=== PATIENT | female | born 1970 | race Caucasian/White ===

== ENCOUNTER 2020-12-31 08:44 | Inpatient (IN) ==
--- NOTE | 2020-12-16 12:37 | PAT Medication Instructions ---
Medication Instructions Date of Service December 16, 2020 Home Medications acetaminophen [Tylenol Extra Strength] 500 mg PO Q4H PRN Continue as directed acetaminophen [Tylenol Extra Strength] 500 mg PO Q4H PRN (if needed, may be taken up to four hours before surgery) Other Notes If you have any questions please call us at [phone] or [phone] or [phone] or [phone]
--- NOTE | 2020-12-17 12:37 | Anesthesiology Consultation ---
Date of Service December 17, 2020 Assessment & Plan (1) Encounter for pre-operative examination: COVID Status: As of 12/17 assessment, patient denies travel to endemic area, known exposure/sick contacts, or symptoms of COVID19. Patient instructed that they and their household members must follow strict social distancing guidelines, wear a mask in public and avoid travel/events/gatherings for 14 days prior to surgery. Preoperative COVID19 testing to be completed prior to surgery per surgeon's arrangements (12/27). Patient made aware to self-isolate as much as possible between COVID testing and surgery. Pt is fully vaccinated for COVID. Patient with recent blepharoplasty and forehead lift. Tito at scalp line and episcopalian to be removed on 12/19/20, but patient reports that her plastic surgeon advised she have extra padding around her forehead when prone intraoperatively. HCG AM DOS Chart Review Chart Review: Acceptable Risk for Surgery and Patient seen in Pre Admission Testing Teaching & Discussion Instructed NPO after midnight before surgery, except medications with 15 cc of water. Medication instructions provided according to the PAT guidelines. History Surgery Operation Date: 12/31/20 07:45 Proposed Procedures p L4-S1 Decompression Fusion, Spinal Cord Monitoring - Javid Brady, Height/Weight Height: 5 ft 4 in Weight: 92.5 kg Allergies Allergy/AdvReac Type Severity Reaction Status Date / Time No Known Allergies Allergy Verified 12/11/20 11:51 Medications Home Medications Medication Instructions Recorded Confirmed Last Taken acetaminophen [Tylenol Extra 500 mg PO Q4H PRN 12/11/20 12/11/20 Unknown Strength] Past Medical History Medical History Chronic back pain Spondylisthesis Exercise / Class Metabolic Activity II 4-5 Yardwork/Stairs/Walk up hill Past Family History Family History Mother Family history of diabetes mellitus Grandmother (Paternal) Family history of diabetes mellitus Past Surgical History Surgical History Elective surgery CRYOSURGERY CERVIX History of arthroscopy SHOULDER LEFT History of back surgery CERVICAL FUSION History of bunionectomy of both great toes History of endometrial ablation History of esophagogastroduodenoscopy (EGD) History of eyelid surgery UPPER History of tonsillectomy Nausea and vomiting after administration of anesthetic agent NAUSEA ONLY Past Anesthesia History No Hx of Anesthesia Complications and No Family Hx of Anesthesia Complications History of PONV No Hx of Motion Sickness and History of PONV (nausea after blepharoplasty) Social History Smoking Status: Former smoker Do You Dip or Chew Tobacco: No Smoking End Date: QUIT 15 YRS AGO Hx Alcohol Use: No Hx Substance Use: No Review of Systems Pt denies any recent chest pain, shortness of breath, palpitations, cough, fever, URI, or uncontrolled acid reflux. +mild allergy symptoms, slightly itchy throat sometimes Physical Exam Vital Signs BP: 111/76 P: 83bpm SPO2: 97% RA T: 98.4 F R: 16 Eyes Ecchymosis under B/L eyes 2/2 recent blepharoplasty ENMT Mouth: + dental restorations (one crown lower R molar); no chipped teeth and no loose teeth Thyromental Distance: < 3.5 Finger Breadths (3) Mallampati Class: I Neck + limited neck extension (2/2 h/o fusion) Respiratory normal respiratory effort, lungs clear to auscultation Cardiovascular RRR, no murmur, no edema Testing Laboratory Results 12/17/20 12:53 12/17/20 12:53 PT 10.3 Seconds (9.0-12.0) 12/17/20 12:53 INR 1.0 (0.9-1.1) 12/17/20 12:53 APTT 26.6 Seconds (21.0-31.0) 12/17/20 12:53 Urine Color Yellow 12/17/20 12:53 Urine Appearance Clear (Clear) 12/17/20 12:53 Urine pH 6.5 (4.5-7.5) 12/17/20 12:53 Ur Specific [place] <= 1.005 (1.000-1.030) 12/17/20 12:53 Urine Protein Negative (Negative) 12/17/20 12:53 Urine Glucose (UA) Negative (Negative) 12/17/20 12:53 Urine Ketones Negative (Negative) 12/17/20 12:53 Urine Nitrite Negative (Negative) 12/17/20 12:53 Ur Leukocyte Esterase Negative (Negative) 12/17/20 12:53 Urine RBC 5-10 /hpf (0-4) H 12/17/20 12:53 Urine WBC 0-5 /hpf (0-5) 12/17/20 12:53 Ur Epithelial Cells 5-10 /lpf (0-5) H 12/17/20 12:53 Blood Type B Positive 12/17/20 12:53 Antibody Screen NEGATIVE 12/17/20 12:53 Electrocardiogram Date: 12/17/20 Findings: + NSR @ (70bpm) Chest X-Ray Date: 12/17/20 Findings: + NAD
--- NOTE | 2020-12-17 13:15 | XRay Report ---
TWO VIEW CHEST CLINICAL HISTORY: Preoperative examination. Reported smoking history. FINDINGS: PA and lateral chest radiographs are obtained. No prior studies are available for compariso n at the time of dictation. The cardiomediastinal silhouette is unremarkable. The lungs and pleural spaces are clear. There is no pneumothorax. The bony thorax appears intact. Fusion hardware is noted in the lower cervical spine. Surgical clips are seen in the left lower neck. IMPRESSION: No active disease in the chest. ACT 112: Negative or not required by law. Electronically signed by: Lorenzo Godfrey M.D. 12/17/2020 1:13 PM
[2020-12-17 14:19] LABS: Basophils # (auto) 0.02 K/uL (0-0.2); Basophils % (auto) 0.4 %; Eosinophils # (auto) 0.07 K/uL (0-0.5); Eosinophils % (auto) 1.5 %; Hematocrit (blood only) 38.6 % (37-47); Hemoglobin 13.2 g/dL (12.0-16.0); Immature Granulocytes # (auto) 0.01 K/uL (0.00-0.02); Immature Granulocytes % (auto) 0.2 %; Lymphocytes # (auto) 1.48 K/uL (1.2-3.4); Lymphocytes % (auto) 31.7 %; Mean Corpuscular Hemoglobin 30.3 pg (25-34); Mean Corpuscular Hgb Conc 34.2 g/dL (32-36); Mean Corpuscular Volume 88.7 fL (80-100); Mean Platelet Volume 9.1 fL (7.4-10.4); Monocytes # (auto) 0.48 K/uL (0.11-0.59); Monocytes % (auto) 10.3 %; Neutrophils # (auto) 2.61 K/uL (1.4-6.5); Neutrophils % (auto) 55.9 %; Platelet Count 313 K/uL (130-400); RDW Coefficient of Variation 12.4 % (11.5-14.5); RDW Standard Deviation 40.3 fL (36.4-46.3); Red Blood Count 4.35 M/uL (4.2-5.4); White Blood Count 4.67 K/uL (4.8-10.8)
[2020-12-17 14:29] LABS: Calcium 8.7 mg/dl (8.5-10.1); Creatinine Clr Calc Pharmacy 107.2 ml/min; Est GFR (African American) 117.9 ml/min; Est GFR (Non-African American) 101.7 ml/min; Potassium 4.5 mmol/L (3.5-5.1)
[2020-12-17 14:31] LABS: Appearance Urine Clear (Clear); Bilirubin Urine Negative (Negative); Blood Urine Trace-intact (Negative); Color Urine Yellow; Glucose Urine UA Negative (Negative); Ketones Urine Negative (Negative); Leukocyte Esterase Urine Negative (Negative); Nitrite Urine Negative (Negative); Protein Urine Negative (Negative); Specific Gravity Urine <= 1.005 (1.000-1.030); Urobilinogen Urine Negative (Negative); pH Urine 6.5 (4.5-7.5)
[2020-12-17 14:33] LABS: Partial Thromboplastin Time 26.6 Seconds (21.0-31.0); Prothrombin Time 10.3 Seconds (9.0-12.0)
[2020-12-17 14:59] LABS: Bacteria Urine Negative (Negative); WBC Urine 0-5 /hpf (0-5)
--- NOTE | 2020-12-17 17:10 | Electrocardiogram Report ---
Test Reason : Blood Pressure : / mmHG Vent. Rate : 070 BPM Atrial Rate : 070 BPM P-R Int : 146 ms QRS Dur : 084 ms QT Int : 400 ms P-R-T Axes : 063 070 063 degrees QTc Int : 432 ms Normal sinus rhythm Normal ECG No previous ECGs available Confirmed by Colten Wright ([id number]) on 12/17/2020 5:09:56 PM Referred By: Javid Brady Confirmed By:Andrey Wright
[~2020-12-31 08:44] MED LIST: ACETAMINOPHEN 500 MG TAB PO SCH; CeleBREX 200 MG CAP PO SCH; GABAPENTIN 900 MG DOSE PO SCH; LR 15ML/HR IV SCH; ceFAZolin 2000MG 2,000 MG/15 ML SYR IV SCH
--- NOTE | 2020-12-31 10:12 | History & Physical Bridge Note ---
Date of Service December 31, 2020 History & Physical Bridge Note I have examined the patient, reviewed the History & Physical and in the interval since the performance of the History & Physical I have noted the following changes of clinical significance: no changes noted
--- NOTE | 2020-12-31 10:12 | History & Physical Report ---
Date of Service December 31, 2020 Assessment & Plan (1) Neurogenic claudication due to lumbar spinal stenosis: Admission and Anticipated Discharge Date Admission Date: L4-S1 decompression fusion History of Present Illness Chief Complaint: Back and leg pain Primary Care Provider: Judith Méndez MD This is a 50-year-old female presents with chronic persistent back and leg pain. Failing course of nonoperative care she is here for surgical invention. Allergies Allergy/AdvReac Type Severity Reaction Status Date / Time No Known Allergies Allergy Verified 12/31/20 09:10 Home Medications Medication Instructions Recorded Confirmed Type acetaminophen [Tylenol Extra 500 mg PO Q4H PRN 12/11/20 12/31/20 History Strength] Past Med/Surg History Medical History Chronic back pain Spondylisthesis Surgical History Elective surgery CRYOSURGERY CERVIX History of arthroscopy SHOULDER LEFT History of back surgery CERVICAL FUSION History of bunionectomy of both great toes History of endometrial ablation History of esophagogastroduodenoscopy (EGD) History of eyelid surgery UPPER History of tonsillectomy Nausea and vomiting after administration of anesthetic agent NAUSEA ONLY Family History Mother Family history of diabetes mellitus Grandmother (Paternal) Family history of diabetes mellitus Social History Smoking Status: Former smoker Smoking End Date: QUIT 15 YRS AGO; Second Hand Exposure: No; Do You Dip or Chew Tobacco: No; Hx Alcohol Use: No Hx Substance Use: No Preferred Language: Citizen Of [place] Communication Ability: Effective Child Care Required: No Beliefs That Will Affect Care: None Current Living Situation: Spouse Other Information That Helps Us Care for You: No Feels Safe at Home: Yes Safety Concerns: Feels Safe At This Time Assistive Devices: Glasses Physical Exam Physical Exam: Patient is alert and oriented Heart regular in rhythm Lungs clear to auscultation Results & Data ([facility]) Vital Signs (Past 12 Hours) Vital Signs Temp Pulse Resp BP Pulse Ox 12/31/20 09:19 36.9 C 89 18 130/71 97
[2020-12-31] MEDS ORDERED: BUPIVACAINE/EPINEPHRINE 0.5% MPF 1:200,000 30 ML VIAL ONE (10:27)
[2020-12-31] MEDS ORDERED: FLUMAZENIL 0.1 MG/1 ML 10 ML VIAL IV PRN (11:01)
[2020-12-31] MEDS ORDERED: HYDROmorphone INJ 1 MG/ML SYRINGE IV PRN (11:01)
[2020-12-31] MEDS ORDERED: ePHEDrine sulfate 50 MG/ML AMP IV PRN (11:01)
[2020-12-31] MEDS ORDERED: NALOXONE HCL 0.4 MG/1 ML VIAL/CARP IV PRN ×2 (11:01→14:38)
[2020-12-31] MEDS ORDERED: ONDANSETRON INJ 2 MG/ML 2 ML VIAL IV PRN ×2 (11:01→14:38)
[2020-12-31] MEDS ORDERED: ATROPINE SULFATE 0.1 MG/ML 10ML SYR IV PRN (11:01)
[2020-12-31] MEDS ORDERED: PROMETHAZINE HCL 12.5 MG in SODIUM CHLORIDE 0.9% 50 ML IV PRN ×2 (11:01→14:38)
[2020-12-31] MEDS ORDERED: LABETALOL HCL IV 5 MG/ML 20ML IV PRN (11:01)
[2020-12-31] MEDS ORDERED: ONDANSETRON INJ 2 MG/ML 2 ML VIAL ONE (12:15)
[2020-12-31] MEDS ORDERED: MIDAZOLAM HCL 1 MG/ML 2ML VIAL ONE (12:15)
[2020-12-31] MEDS ORDERED: ROCURONIUM BROMIDE 10 MG/ML 5 ML VIAL IV ONE (12:15)
[2020-12-31] MEDS ORDERED: GLYCOPYRROLATE 0.2 MG/ML VIAL ONE (12:15)
[2020-12-31] MEDS ORDERED: fentaNYL citrate 100 MCG/2 ML VIAL ONE ×2 (12:15→12:32)
[2020-12-31] MEDS ORDERED: PROPOFOL IV EMULSION 10 MG/ML 20 ML VIAL IV ONE (12:15)
[2020-12-31] MEDS ORDERED: NEOSTIGMINE METHYLSULFATE 1 MG/ML 10ML VIAL ONE (12:15)
[2020-12-31] MEDS ORDERED: SUCCINYLCHOLINE CHLORIDE 20 MG/ML 10 ML VIAL IV ONE (12:15)
[2020-12-31] MEDS ORDERED: LIDOCAINE 2% 2 ML VIAL/AMP(20MG/ML) INFIL ONE (12:15)
[2020-12-31] MEDS ORDERED: DEXAMETHASONE SOD INJ 4 MG/ML VIAL ONE (12:15)
[2020-12-31] MEDS ORDERED: FLOSEAL HEMOSTATIC MATRIX 10ML TOP ONE (12:32)
--- NOTE | 2020-12-31 12:33 | Operative Report ---
Post Operative Report Pre & Post Diagnosis Operation Date: 12/31/20 12:35 Pre-Op Diagnosis: Neurogenic claudication due to lumbar spinal stenosis Post-Op Diagnosis: Neurogenic claudication due to lumbar spinal stenosis I identified the patient and participated in the time-out.: Yes Procedure Operation Date: 12/31/20 12:35 Actual Procedures #1 lumbar decompression with bilateral medial facetectomies and foraminotomies L3-4, L4-5 L5-S1. #2 posterior spinal fusion L4-5 L5-S1. #3 placement posterior instrumentation L4-5 L5-S1. #4 interbody fusion L4-5 L5-S1. #5 placement peek cage 11 x 22 mm at L4-5 and 10 x 22 mm at L5-S1. #6 placement locally harvested morselized autograft in the posterior gutters. #7 placement of I factor and vitoss the interbody space and posterior gutters.. Surgeon Javid Brady, DO Marble Cleaner Elvia Bunn Estimated Blood Loss 150 Findings See Below Patient is in excess of 35. Patient's body habitus did contribute to significant technical difficulty requiring her deepest retractors and longus instruments in order to perform her procedure. This at least 50% increase to the operative time. Specimens None Indications This is a 50-year-old female who presents with above-mentioned diagnosis after failing course of nonoperative Description of Procedure Patient was met with identified informed consent obtained. Patient was then taken to the operative suite underwent intubation placed in the prone position the Chris table atop the Jaspreet frame. All bony prominences well-padded eyes inspected to ensure no external pressure placed upon the. This point the lumbar spine was prepped and draped in normal sterile fashion. Sharp dissection with the assistance of Bovie cautery was performed down to and exposing the lamina and transverse processes of L for L5 and sacral ala bilaterally. Obvious bilateral pars defect noted. A complete laminectomy of L5 L4 and partial laminectomy L3 was performed including bilateral medial facetectomies and foraminotomies addressing severe spinal stenosis with pedicle screws were then placed in L4-L5 and S1 levels bilaterally with assistance of fluoroscopy the purposes fabi placed. By way the transforaminal portion of the left pleat discectomy of L5-S1 was performed endplates curetted to subcortical any bone and a 10 x 22 mm peek cage filled with I factor tapped in position. Then proceeded to L for L5 and again by way of a transforaminal approach and left pleat di scectomy performed endplates curetted to subcortically bone and a 11 x 22 mm peek cage filled with I factor tapped in position. The rods were then compressed locked into final position bilaterally. The transverse processes of L4-L5 and sacral ala burred to subcortically bone. I factor combined with Vitoss and locally harvested morselized autograft placed in the posterior gutters. 15 round DALIA drain inserted. The incision was then closed with 1 Vicryl in the fascia 2-0 Vicryl subcutaneously and 4 Monocryl for final skin closure. Steri-Strip sterile dressings placed. Patient will continue PACU stable condition. Please note spinal cord monitoring was utilized at the procedure no changes noted. Lastly Elvia Bunn was present at the entire surgery involved the patient positioning complex portions of the surgery and final skin closure. I attest to the content of the Intraoperative Record and any orders documented therein. Any exceptions are noted below.
[2020-12-31] MEDS: fentaNYL citrate 100 MCG/2 ML VIAL IV PRN ×4 (13:20→13:43)
--- NOTE | 2020-12-31 13:43 | Anesthesiology Progress Note ---
Date of Service December 31, 2020 Anesthesia Post Procedure Vital Signs Vital Signs: Temp Pulse Pulse Resp BP Pulse Ox 12/31/20 13:35 65 16 112/62 100 12/31/20 13:25 65 16 109/63 100 12/31/20 13:15 36.4 C L 80 16 111/66 100 12/31/20 13:05 67 16 105/54 L 97 12/31/20 12:55 70 16 102/48 L 92 12/31/20 12:47 36.3 C L 90 16 118/65 98 12/31/20 09:19 36.9 C 89 18 130/71 97 Pain Intensity Left Leg: Pain Intensity: 3 Back: Pain Intensity: 5 Transfer of Care Handoff Completed per policy Notes Mental Status: alert / awake / arousable Patient Amnestic to Procedure: Yes Nausea / Vomiting: adequately controlled Pain: adequately controlled Airway Patency, RR, SpO2: stable & adequate BP & HR: stable & adequate Hydration State: stable & adequate Anesthetic Complications: no major complications apparent
--- NOTE | 2020-12-31 14:01 | Fluoroscopy Report ---
FL lumbar spine 2-3V CLINICAL HISTORY: L4-S1 DECOMPRESSION AND FUSION COMPARISON STUDY: None. FLUOROSCOPY TIME: 25 seconds. FLUOROSCOPIC IMAGES: 2 FINDINGS: Fluoroscopy was provided during L4-L5 and L5-S1 discectomies with interbody spacer placemen t. Posterior decompression is noted with bilateral pedicle screw fusion from L4 through S1. The hardw are is intact. IMPRESSION: Fluoroscopy provided for L4-S1 discectomy, posterior decompression and bilateral pedicle screw fusion. ACT 112: Negative or not required by law. Electronically signed by: Mathew Hutchinson M.D. 12/31/2020 1:59 PM
[2020-12-31] MEDS ORDERED: SOD PHOSPHATE/SOD BIPHOSPHATE ENEMA 132 ML BTL PR PRN (14:38)
[2020-12-31] MEDS ORDERED: diphenhydrAMINE Capsule 25 MG CAP PO PRN (14:38)
[2020-12-31] MEDS ORDERED: METOCLOPRAMIDE HCL INJ 5 MG/ML 2 ML VIAL IV PRN (14:38)
[2020-12-31] MEDS ORDERED: ALUMINUM/MAGNESIUM SUSP 30 ML UDC PO PRN (14:38)
[2020-12-31] MEDS ORDERED: FAMOTIDINE 20 MG TAB PO PRN (14:38)
[2020-12-31] MEDS ORDERED: DO NOT ADMINISTER PNEUMOCOCCAL VACCINE PRN (14:38)
[2020-12-31] MEDS ORDERED: MAGNESIUM HYDROXIDE SUSP 30 ML UDC PO PRN (14:38)
[2020-12-31] MEDS ORDERED: ACETAMINOPHEN 1,000 MG/100 ML VIAL IV PRN (14:38)
[2020-12-31] MEDS ORDERED: ONDANSETRON 4 MG OD TAB PO PRN (14:38)
[2020-12-31] MEDS ORDERED: hydrOXYzine HCl 25 MG TAB PO PRN (14:38)
[2020-12-31] MEDS ORDERED: LORazepam 0.5 MG/1 ML VIAL IV PRN (14:38)
[2020-12-31] MEDS ORDERED: DO NOT ADMINISTER FLU VACCINE PRN (14:38)
[2020-12-31] MEDS ORDERED: LORazepam 0.5 MG TAB PO PRN (14:38)
[2020-12-31] MEDS: HYDROmorphone INJ 1 MG/ML SYRINGE IV PRN ×2 (14:58→20:19)
[2020-12-31] MEDS: oxyCODONE HCL IR 5 MG TAB (IMMEDIATE RELEASE) PO PRN ×2 (16:57→23:21)
[2020-12-31] MEDS: LACTATED RINGER'S 1,000 ML IV SCH (17:06)
[2020-12-31] MEDS: ceFAZolin 2000MG 2,000 MG/15 ML SYR IV SCH (18:24)
[2020-12-31] MEDS: DOCUSATE SODIUM/SENNA 50/8.6MG TAB PO SCH (20:18)
[2020-12-31] MEDS: ACETAMINOPHEN 500 MG TAB PO PRN (23:21)
[2021-01-01] MEDS: traMADol HCL 50 MG TABLET PO PRN ×4 (02:33→18:21)
[2021-01-01] MEDS: ceFAZolin 2000MG 2,000 MG/15 ML SYR IV SCH (02:34)
[2021-01-01] MEDS: LACTATED RINGER'S 1,000 ML IV SCH (04:10)
[2021-01-01 06:34] LABS: Basophils # (auto) 0.01 K/uL (0-0.2); Basophils % (auto) 0.1 %; Hematocrit (blood only) 33.4 % (37-47); Hemoglobin 11.6 g/dL (12.0-16.0); Immature Granulocytes # (auto) 0.02 K/uL (0.00-0.02); Immature Granulocytes % (auto) 0.1 %; Lymphocytes # (auto) 1.36 K/uL (1.2-3.4); Lymphocytes % (auto) 9.2 %; Mean Corpuscular Hemoglobin 30.9 pg (25-34); Mean Corpuscular Hgb Conc 34.7 g/dL (32-36); Mean Corpuscular Volume 88.8 fL (80-100); Monocytes # (auto) 0.82 K/uL (0.11-0.59); Monocytes % (auto) 5.6 %; Neutrophils # (auto) 12.54 K/uL (1.4-6.5); Platelet Count 286 K/uL (130-400); RDW Coefficient of Variation 12.4 % (11.5-14.5); Red Blood Count 3.76 M/uL (4.2-5.4); White Blood Count 14.75 K/uL (4.8-10.8)
[2021-01-01] MEDS: oxyCODONE HCL IR 5 MG TAB (IMMEDIATE RELEASE) PO PRN ×4 (06:37→20:10)
[2021-01-01] MEDS: POLYETHYLENE (MIRALAX) 17 GM PACK PO SCH ×3 (06:37→17:26)
[2021-01-01 07:08] LABS: BUN Creatinine Ratio 12.6 (10-20); Calcium 8.7 mg/dl (8.5-10.1); Creatinine Clr Calc Pharmacy 102.8 ml/min; Est GFR (African American) 112.1 ml/min; Est GFR (Non-African American) 96.7 ml/min; Potassium 4.2 mmol/L (3.5-5.1)
--- NOTE | 2021-01-01 12:27 | Orthopedic Progress Note ---
Date of Service January 01, 2021 Assessment & Plan (1) Neurogenic claudication due to lumbar spinal stenosis: Admission and Anticipated Discharge Date Admission Date: December 31, 2020 At this time we will continue physical therapy monitor DALIA operatively discharge home in the next few days. Subjective Patient's back pain is controlled leg symptoms markedly improved. Physical Exam Physical Exam: Patient is good strength testing appears comfortable. Results & Data ([facility]) Vital Signs (Past 12 Hours) Vital Signs Temp Pulse Resp BP Pulse Ox 01/01/21 11:46 36.8 C 75 18 106/68 95 01/01/21 07:34 36.8 C 71 18 89/55 L 97 01/01/21 04:00 36.5 C 74 16 91/55 L 96
[2021-01-01] MEDS: ACETAMINOPHEN 500 MG TAB PO PRN (13:20)
[2021-01-01] MEDS: DOCUSATE SODIUM/SENNA 50/8.6MG TAB PO SCH (20:11)
[2021-01-02] MEDS: POLYETHYLENE (MIRALAX) 17 GM PACK PO SCH ×4 (00:04→17:27)
[2021-01-02] MEDS: HYDROmorphone INJ 0.5 MG/0.5 ML SYR IV PRN ×2 (00:16→05:03)
[2021-01-02] MEDS: oxyCODONE HCL IR 5 MG TAB (IMMEDIATE RELEASE) PO PRN ×4 (07:42→20:28)
--- NOTE | 2021-01-02 08:27 | Orthopedic Progress Note ---
Date of Service January 02, 2021 Assessment & Plan (1) Neurogenic claudication due to lumbar spinal stenosis: Admission and Anticipated Discharge Date Admission Date: December 31, 2020 At this time we will continue physical therapy monitor her DALIA output anticipate discharge home tomorrow. Subjective Back pain controlled leg symptoms improved. Physical Exam Physical Exam: Patient is comfortable. She is good strength testing. Results & Data ([facility]) Vital Signs (Past 12 Hours) Vital Signs Temp Pulse Pulse Resp BP Pulse Ox 01/02/21 07:35 36.7 C 85 16 101/67 99 01/01/21 21:17 36.4 C L 80 18 118/66 95
[2021-01-02] MEDS: dexAMETHasone 8 MG in SYRINGE 0 ML IV SCH (08:36)
[2021-01-02] MEDS: traMADol HCL 50 MG TABLET PO PRN ×4 (10:19→22:35)
[2021-01-02 10:43] LABS: Appearance Urine Cloudy (Clear); Bacteria Urine Automated Negative (Negative); Bilirubin Urine Negative (Negative); Blood Urine Negative (Negative); Color Urine Dark Yellow; Epithelial Cell Urine Auto >30 /lpf (0-5); Glucose Urine UA Negative (Negative); Ketones Urine Trace (Negative); Leukocyte Esterase Urine 1+ (Negative); Nitrite Urine Negative (Negative); Protein Urine Negative (Negative); RBC Urine Automated 0-4 /hpf (0-4); Specific Gravity Urine 1.023 (1.000-1.030); Urobilinogen Urine Negative (Negative)
[2021-01-02] MEDS ORDERED: bisacodyL 10 MG SUPP PR PRN (12:36)
[2021-01-02] MEDS: DOCUSATE SODIUM/SENNA 50/8.6MG TAB PO SCH (20:29)
[2021-01-03] MEDS: oxyCODONE HCL IR 5 MG TAB (IMMEDIATE RELEASE) PO PRN ×3 (00:30→10:32)
[2021-01-03] MEDS: traMADol HCL 50 MG TABLET PO PRN ×2 (03:21→07:27)
[2021-01-03] MEDS: dexAMETHasone 8 MG in SYRINGE 0 ML IV SCH (08:30)
--- NOTE | 2021-01-03 11:20 | Discharge Summary ---
Date of Service January 03, 2021 Admission HPI Per Admitting Provider This is a 50-year-old female presents with chronic persistent back and leg pain. Failing course of nonoperative care she is here for surgical invention. Principal Diagnosis Lumbar spinal stenosis with neurogenic claudication Discharge Data Allergies Allergy/AdvReac Type Severity Reaction Status Date / Time No Known Allergies Allergy Verified 12/31/20 09:10 Procedures Performed Operation Date: 12/31/20 12:35 Actual Procedures p L4-S1 Decompression Fusion with Insertion of Interbodies, Spinal Cord Monitoring(Not Applicable) - Javid Brady DO Ordered Studies 12/31/20 12:35 [place] lumbar spine 2-3V Routine Hospital Course (1) Neurogenic claudication due to lumbar spinal stenosis: Patient went lumbar decompression fusion tolerates well second orthopedic for possibly. Postop day 1 she was up and ambulating progressive postop day 1 2 postop day #3 DALIA drain decreased probably. Pain well controlled. Excellent strength testing. Subsequent discharge home. Discharge orders instructions from the chart for further review. Total Time Total Time Spent Total Time Spent (In Minutes): 20 minutes Discharge Plan Discharge Items Patient Disposition: Home - Self-Care Reason For Visit: Intervertebral Disc Disorders Lumbar Region Discharge Diagnosis: Lumbar spinal stenosis with neurogenic claudication Activity: As commented below Non-emergency contact: Primary Care Provider Call non-emergency contact if: you have any medication questions Follow-up/Referrals: Judith Méndez MD [Primary Care Provider] - Diet: Regular Addtl Attending Provider Instructions: ACTIVITY RECOMMENDATIONS: SELF CARE INSTRUCTIONS AFTER THORACIC/LUMBAR FUSIONS 1. You may walk to your tolerance. It is good exercise for your legs and back. Expect some back and intermittent leg aches and pains. 2. You may perform "counter-top" level activities (make a sandwich, ramses with a project, etc.). 3. No bending or lifting of more than 10 pounds or back twisting of any nature (roll like a log when turning in bed). 4. You may ride in a car for 20-30 minutes at a time. No driving until after your first visit with your doctor. 5. Frequent changes of position and restricting sitting to 30 minutes at a time will help limit the amount of back spasms and stiffness you may experience. 6. You may discontinue the use of ambulatory aids (cane, crutches, etc.) once your strength and confidence allow. 7. You may glycerin operator the shower and let water strike your incision when you arrive home at least once daily. Do not take a tub bath, sit in a hot tub or go into a swimming pool until after your first recheck in the office. SPECIAL CARE INSTRUCTIONS: VERY IMPORTANT TO READ AND REVIEW A. Your surgical incision has been closed with a cosmetic suture under the skin that will dissolve in about 6 weeks. In 14 days, you can use a pair of clean scissors and cut the suture that is left outside of the skin at the ends of your incision. 1. The small skin tapes can be removed 7 days after surgery if they have not fallen off by that point. 2. You may keep the wound open to air as much as possible to promote healing after post-op day number 5 unless told otherwise by your doctor. 3. If you think the wound looks like it is becoming infected (redness or worsening drainage) and/or you are experiencing fever, chill or worsening back pain and muscle spasms, contact the office so that we may evaluate you as soon as possible. B. Complications are uncommon, but please contact us if you have any signs or symptoms of: 1. wound infection (fever higher than 102.5 degrees F, redness, separation of wound, drainage, or increasing pain from the incision) 2. blood clots in legs (pain, swelling, redness and warmth in legs) 3. urinary tract infection (fever higher than 102.5 degrees F, burning upon urination or increased frequency of urination) 4. nerve problems (inability to walk on your toes or heels, numbness, loss of bowel or bladder control) 5. any other symptoms that concern you C. Please call the office at if you have any concerns or questions about your operation or recovery. D. No smoking! Smoking drastically decreases the chance of a solid fusion. E. Do not take any anti-inflammatory medications (Indocin, Advil, Motrin, Aspirin, Naprosyn, etc.) as these may inhibit the chance of a solid fusion. Tylenol is okay to take for pain. MANAGING PAIN AFTER SPINAL SURGERY 1. Narcotic medication is intended for short-term use and will be provided for surgical pain. Surgical pain usually lasts for a period of 4-6 weeks. Narcotic medication includes Percocet, Vicodin, Darvocet, Tylenol #3 or Lortab. 2. Longer-term pain is more appropriately treated with non-narcotic medication such as Tylenol ES. 3. Muscle spasm is not appropriately treated with narcotics. Muscle relaxers such as Soma, Flexeril or Skelaxin can be used along with Tylenol ES. 4. Remember that we all live with some "aches and pains". This is not unusual or uncommon after an injury or as we get older. a. Back pain is expected and may include muscle spasms for 4 to 6 weeks after surgery. The pain should gradually improve. If the pain worsens for no apparent reason, please contact the office. b. Intermittent leg pain may also be experienced and should not be concerned about unless it worsens for no apparent reason. If so, please contact the office. 5. We will provide appropriate medication within the normal guidelines of their prescribed use. We will also be very cautious and aware of potential abuse and extended duration of patients' medication needs. a. Pain medications are for your comfort and to assist with sleep and rest so that the tissue can heal. They are not provided in order to return to normal activity and should not be used through the day. To do so or worsening pain at night can result from ongoing tissue damage and development of tolerance to the prescribed medicine. 6. Please allow 2-3 days to process refills. Prescriptions will not be mailed but must be picked up at the office. FOLLOW UP VISIT: Keep your scheduled follow-up appointment. Any questions, please call the office at . Pending Studies at Discharge: No Stand-Alone Forms: My [facility], Smoking Cessation Medications and MT Order Prescriptions: New tramadol 50 mg tablet 50 mg PO Q6H PRN (Reason: pain, moderate) Qty: 30 RF: 0 oxycodone 5 mg tablet 5 mg PO Q6H PRN (Reason: pain, severe) Qty: 30 RF: 0 Continued acetaminophen 500 mg Capsule 500 mg PO Q4H PRN (Reason: Pain) RF: 0 Discharge Orders: Discharge Order (Routine); Ordered 01/03/21 Ordered By: Javid Brady Admission Data Admit Date/Time: 12/31/20 12:48 Attending Provider: Javid Brady Admit Provider: Javid Brady Primary Care Provider: Judith Méndez
== END 2021-01-03 13:05 | disposition home or self-care (01) | DRG 455 ==
LOC: ASU 08:44 → 3W 12:48